=== PATIENT | male | born 1950 | race Caucasian/White ===

== ENCOUNTER 2019-07-09 13:32 | Emergency (ER) | payer OTHER, SELFPAY ==
[2019-07-09 13:40] VITALS: BP 161/75; PULSE 63; RESP 16; TEMP 36.2; O2SAT 99; BMI 25.1
[2019-07-09 14:24] LABS: Add Manual Diff / Slide Review NO; Basophils Absolute Auto 0 /uL (0-100); Basophils Percent Auto 0.2 % (0-2); Eosinophils Absolute Auto 0 /uL (0-450); Eosinophils Percent Auto 0.2 % (2-4); Hemoglobin 14.7 g/dL (13.5-17.5); Lymphocytes Absolute Auto 600 /uL (1100-4500); Lymphocytes Percent Auto 4.7 % (25-40); Mean Corpuscular HGB Conc 34.2 % (30-36); Mean Corpuscular Hemoglobin 31.8 PG (26-34); Mean Corpuscular Volume 93.2 fL (80-100); Monocytes Absolute Auto 800 /uL (0-900); Neutrophils Absolute Auto 11500 /uL (1500-7000); Neutrophils Percent Auto 88.9 % (50-75); Platelet Count 208 X10^3/uL (150-400); Red Blood Cell Count 4.61 X10^6/uL (4.5-5.9); Red Cell Distribution Width 13.1 % (11.6-14.8); White Blood Cell Count 12.9 X10^3/uL (4.5-11.0)
[2019-07-09] MEDS: KETOROLAC 60 MG/2 ML VIAL 30 MG IV (14:24)
[2019-07-09] MEDS: ONDANSETRON 4 MG/2 ML INJ IV (14:24)
[2019-07-09] MEDS: SODIUM CHLORIDE 0.9% 1,000 ML 1000 ML IV (14:25)
[2019-07-09 14:28] LABS: Prothrombin Time 10.9 SECONDS (10.1-12.7)
[2019-07-09 14:30] LABS: PTT Partial Thromboplastin Tim 28 SECONDS (26.4-36.2)
[2019-07-09 14:31] LABS: HEMOLYSIS < 15 (0-50); Sodium 139 mmol/L (137-145)
--- NOTE | 2019-07-09 14:32 | PC.NURSE ---
c/o left flank pain w/ h/o kidney stones. + nausea / vomiting. Denies fever / chills.
[2019-07-09 14:33] LABS: Alanine Aminotransferase 32 IU/L (21-72); Albumin 4.6 g/dL (3.5-5.0); Albumin Globulin Ratio 1.8 (1.0-2.8); Alkaline Phosphatase 74 U/L (38-126); Aspartate Aminotransferase 36 IU/L (17-59); Bilirubin Total 0.8 mg/dL (0.2-1.3); Blood Urea Nitrogen 18 mg/dL (9-20); Calcium 9.6 mg/dL (8.4-10.2); Carbon Dioxide 28 mmol/L (22-32); Chloride 100 mmol/L (98-107); Estimated Glomerular Filt Rate > 60.0 mL/min (>60); Globulin 2.6 g/dL (1.7-4.1); Glucose 122 mg/dL (80-110); Lipase 52 U/L (23-300); Potassium 4.1 mmol/L (3.4-5.1); Total Protein 7.2 g/dL (6.3-8.2)
--- NOTE | 2019-07-09 14:37 | ED.MALEGU ---
HPI - Male Genitourinary <DOMINIK Frank - Last Filed: 07/09/19 20:26> General Chief complaint: Urogenital-Male Stated complaint: possible kidney stone been sick last couple of day Time Seen by Provider: 07/09/19 14:21 Source: patient Mode of arrival: ambulatory Limitations: no limitations History of Present Illness HPI Narrative: 69-year-old male with a history of HTN, HLD, and a kidney stone a long time ago, presents emergency department complaining of left flank pain this morning with vomiting and nausea. Patient states after dinner 5 days ago he felt like his stomach was a little ?upset, he proceeded to take Ex-Lax and had some diarrhea. However, the left flank pain and vomiting developed today and he was afraid that he might have another kidney stone. He states his last kidney stone was over 10 years ago. He denies any dysuria, hematuria, fevers, chills, chest pain, shortness of breath, abdominal pain at this time, or syncope. Related Data Previous Rx's Medication Instructions Recorded ketorolac 10 mg PO TID #7 tab 07/09/19 ondansetron 8 mg PO Q8H #14 tab 07/09/19 oxycodone-acetaminophen [Percocet] 1 tab PO Q4-6H PRN #14 tab 07/09/19 tamsulosin 0.4 mg PO DAILY #20 cap 07/09/19 Allergies Allergy/AdvReac Type Severity Reaction Status Date / Time No Known Drug Allergies Allergy Verified 07/09/19 13:40 Review of Systems <DOMINIK Frank - Last Filed: 07/09/19 20:26> Review of Systems Narrative: PHYSICAL EXAMINATION: GENERAL: Well groomed, alert, and cooperative. Answers questions promptly and appropriately. Vital signs noted. HENT: Normocephalic, atraumatic. Hearing intact. Oral mucosa is pink and moist. EYES: Conjunctiva pink, sclera white, no periorbital swelling. CARDIOVASCULAR: S1 and S2 sounds normal. Regular rate and rhythm, no murmurs, clicks, or bruits. No pedal edema. RESPIRATORY: Normal respiratory rate, trachea midline, airway patent. No stridor, nasal flaring or accessory muscle use. Lungs are clear in all kim without wheeze, rhonchi, or crackles. GASTROINTESTINAL: Bowel sounds normoactive. Abdomen is soft and non-tender. No organomegaly, no palpable masses. GENITALURINARY: Left flank tenderness noted. MUSCULOSKELETAL: Normal gait and coordination. Equal tone and mass bilaterally. EXTREMITIES: CMS intact, no pedal edema. SKIN: Warm, dry, soft, appropriate color for ethnicity. No lesions, rashes, or wounds. NEURO: Alert and Oriented X 3. Good coordination. No ataxia, or sensory deficits, or cognitive issues. PSYCH: Appropriate affect and mood. PFSH <DOMINIK Frank - Last Filed: 07/09/19 20:26> Medical History No significant past surgical history (Acute) Social History Smoking Status: Never smoker Social History Smoking Status: Never smoker Exam <DOMINIK Frank - Last Filed: 07/09/19 20:26> Initial Vital Signs Initial Vital Signs: Vital Signs Temperature 97.2 F L 07/09/19 13:40 Pulse Rate 63 07/09/19 13:40 Respiratory Rate 16 07/09/19 13:40 Blood Pressure 161/75 H 07/09/19 13:40 Pulse Oximetry 99 07/09/19 13:40 PHYSICAL EXAMINATION: GENERAL: Well groomed, alert, and cooperative. Patient appears in pain during exam. Answers questions promptly and appropriately. Vital signs noted. HENT: Normocephalic, atraumatic. Hearing intact. Oral mucosa is pink and moist. EYES: Conjunctiva pink, sclera white, no periorbital swelling. CARDIOVASCULAR: S1 and S2 sounds normal. Regular rate and rhythm, no murmurs, clicks, or bruits. No pedal edema. RESPIRATORY: Normal respiratory rate, trachea midline, airway patent. No stridor, nasal flaring or accessory muscle use. Lungs are clear in all kim without wheeze, rhonchi, or crackles. GASTROINTESTINAL: Bowel sounds normoactive. Abdomen is soft and non-tender. No organomegaly, no palpable masses. GENITALURINARY: No flank tenderness. MUSCULOSKELETAL: Normal gait and coordination. Equal tone and mass bilaterally. EXTREMITIES: CMS intact, no pedal edema. SKIN: Warm, dry, soft, appropriate color for ethnicity. No lesions, rashes, or wounds. NEURO: Alert and Oriented X 3. Good coordination. No ataxia, or sensory deficits, or cognitive issues. PSYCH: Appropriate affect and mood. <Divina Rogers DO - Last Filed: 07/10/19 19:15> Initial Vital Signs Initial Vital Signs: Vital Signs Temperature 97.2 F L 07/09/19 13:40 Pulse Rate 63 07/09/19 13:40 Respiratory Rate 16 07/09/19 13:40 Blood Pressure 161/75 H 07/09/19 13:40 Pulse Oximetry 99 07/09/19 13:40 Course <Iraida VelasquezDOMINIK landa - Last Filed: 07/09/19 20:26> Course Course Narrative: Patient reports decreased pain after administration of Toradol and Zofran. I had extensive conversation with the patient about his test results. He stated his symptoms from [place] and would like to establish the urologist in [place]. I stressed the importance of following up with the urologist as soon as possible as his stone is very big. I also stressed the importance that he was written to return to the emergency department if his pain or symptoms worsen in any way. Orders Ordered: Discontinued Medications Sodium Chloride (Normal Saline 0.9%) 1,000 mls @ 1,000 mls/hr IV BOLUS ONE Stop: 07/09/19 15:20 Last Infusion: 07/09/19 16:52 Dose: 0 mls/hr Documented by: JUAN LUIS Admin: 07/09/19 14:25 Dose: 1,000 mls/hr Documented by: RUBY Ketorolac Tromethamine (Toradol) 30 mg IV NOW ONE Stop: 07/09/19 14:22 Last Admin: 07/09/19 14:24 Dose: 30 mg Documented by: RUBY Ondansetron HCl (Zofran) 4 mg IV NOW ONE Stop: 07/09/19 14:22 Last Admin: 07/09/19 14:24 Dose: 4 mg Documented by: RUBY Consultations Consultation #1: Patient was staffed with Dr. Rogers. Vital Signs Vital signs: Vital Signs - 8 hr 07/09/19 13:40 07/09/19 15:24 07/09/19 16:26 Temperature 97.2 F L Pulse Rate 63 68 70 Respiratory Rate 16 18 18 Blood Pressure 161/75 H Blood Pressure [Left Arm] 138/74 136/70 Pulse Oximetry 99 98 98 <Divina Rogers DO - Last Filed: 07/10/19 19:15> Orders Ordered: Discontinued Medications Sodium Chloride (Normal Saline 0.9%) 1,000 mls @ 1,000 mls/hr IV BOLUS ONE Stop: 07/09/19 15:20 Last Infusion: 07/09/19 16:52 Dose: 0 mls/hr Documented by: JUAN LUIS Admin: 07/09/19 14:25 Dose: 1,000 mls/hr Documented by: RUBY Ketorolac Tromethamine (Toradol) 30 mg IV NOW ONE Stop: 07/09/19 14:22 Last Admin: 07/09/19 14:24 Dose: 30 mg Documented by: RUBY Ondansetron HCl (Zofran) 4 mg IV NOW ONE Stop: 07/09/19 14:22 Last Admin: 07/09/19 14:24 Dose: 4 mg Documented by: RUBY Vital Signs Vital signs: Vital Signs - 8 hr 07/09/19 13:40 07/09/19 15:24 07/09/19 16:26 Temperature 97.2 F L Pulse Rate 63 68 70 Respiratory Rate 16 18 18 Blood Pressure 161/75 H Blood Pressure [Left Arm] 138/74 136/70 Pulse Oximetry 99 98 98 MDM - Male Genitourinary <DOMINIK Frank - Last Filed: 07/09/19 20:26> Medical Records Attestation: I reviewed the patient's medical records. Lab Data Attestation: I reviewed the patient's lab results. Result diagrams: 07/09/19 14:10 07/09/19 14:10 Labs: Lab Results 07/09/19 07/09/19 07/09/19 Range/Units 14:10 14:10 14:10 WBC 12.9 H (4.5-11.0) X10^3/uL RBC 4.61 (4.5-5.9) X10^6/uL Hgb 14.7 (13.5-17.5) g/dL Hct 43.0 (41-53) % MCV 93.2 (80-100) fL MCH 31.8 (26-34) PG MCHC 34.2 (30-36) % RDW 13.1 (11.6-14.8) % Plt Count 208 (150-400) X10^3/uL Neut % (Auto) 88.9 H (50-75) % Lymph % (Auto) 4.7 L (25-40) % [place] % (Auto) 6.0 (3-14) % Eos % (Auto) 0.2 L (2-4) % Baso % (Auto) 0.2 (0-2) % Neut # (Auto) 59556 H (4172-0570) /uL Lymph # (Auto) 600 L (9714-9671) /uL [place] # (Auto) 800 (0-900) /uL Eos # (Auto) 0 (0-450) /uL Baso # (Auto) 0 (0-100) /uL PT 10.9 (10.1-12.7) SECONDS INR 1.0 (0.9-1.3) APTT 28 (26.4-36.2) SECONDS Sodium 139 (137-145) mmol/L Potassium 4.1 (3.4-5.1) mmol/L Chloride 100 (98-107) mmol/L Carbon Dioxide 28 (22-32) mmol/L BUN 18 (9-20) mg/dL Creatinine 1.00 (0.66-1.25) mg/dL Estimated GFR > 60.0 (>60) mL/min BUN/Creatinine Ratio 18.0 (6-22) Glucose 122 H (80-110) mg/dL Calcium 9.6 (8.4-10.2) mg/dL Total Bilirubin 0.8 (0.2-1.3) mg/dL AST 36 (17-59) IU/L ALT 32 (21-72) IU/L Alkaline Phosphatase 74 (38-126) U/L Total Protein 7.2 (6.3-8.2) g/dL Albumin 4.6 (3.5-5.0) g/dL Globulin 2.6 (1.7-4.1) g/dL Albumin/Globulin Ratio 1.8 (1.0-2.8) Lipase 52 (23-300) U/L Urine RBC (0-5/HPF) Urine WBC (0-5/HPF) Ur Squamous Epith Cells (0-5/HPF) Amorphous Sediment Urine Bacteria (None) Ur Culture Indicated? 07/09/19 Range/Units 16:18 WBC (4.5-11.0) X10^3/uL RBC (4.5-5.9) X10^6/uL Hgb (13.5-17.5) g/dL Hct (41-53) % MCV (80-100) fL MCH (26-34) PG MCHC (30-36) % RDW (11.6-14.8) % Plt Count (150-400) X10^3/uL Neut % (Auto) (50-75) % Lymph % (Auto) (25-40) % [place] % (Auto) (3-14) % Eos % (Auto) (2-4) % Baso % (Auto) (0-2) % Neut # (Auto) (8324-6264) /uL Lymph # (Auto) (0977-6611) /uL [place] # (Auto) (0-900) /uL Eos # (Auto) (0-450) /uL Baso # (Auto) (0-100) /uL PT (10.1-12.7) SECONDS INR (0.9-1.3) APTT (26.4-36.2) SECONDS Sodium (137-145) mmol/L Potassium (3.4-5.1) mmol/L Chloride (98-107) mmol/L Carbon Dioxide (22-32) mmol/L BUN (9-20) mg/dL Creatinine (0.66-1.25) mg/dL Estimated GFR (>60) mL/min BUN/Creatinine Ratio (6-22) Glucose (80-110) mg/dL Calcium (8.4-10.2) mg/dL Total Bilirubin (0.2-1.3) mg/dL AST (17-59) IU/L ALT (21-72) IU/L Alkaline Phosphatase (38-126) U/L Total Protein (6.3-8.2) g/dL Albumin (3.5-5.0) g/dL Globulin (1.7-4.1) g/dL Albumin/Globulin Ratio (1.0-2.8) Lipase (23-300) U/L Urine RBC 10-30/hpf H (0-5/HPF) Urine WBC 0-1/hpf (0-5/HPF) Ur Squamous Epith Cells None seen (0-5/HPF) Amorphous Sediment 1+ Urine Bacteria Occasional (0-1) (None) Ur Culture Indicated? Cult not indicated Urine Dip Bedside Urine Glucose Negative Bedside Urine Bilirubin - Negative Bedside Urine Ketone ++ 40 Urine Specific [place]uff[place] 1.015 Bedside Urine Occult Blood ++ Bedside Urine pH 8.0 Bedside Urine Protein - Negative Bedside Urine Urobilinogen - Negative Bedside Urine Nitrite - Negative Imaging Data CT scan - abdomen: Radiologist's impression: [address] [address] [address] Scan Report Signed Patient: Gus Renner#: [id number] : 1950Acct:[id number] Age/Sex: 69 / MDate of Service: 07/09/19 Loc: ED Accession Number: [id number] Procedure: CT kidney ureter bladder (KUB) Ordering Provider: Iraida Romo PROCEDURE: CT KIDNEY URETER BLADDER (KUB) INDICATIONS: Left Flank pain, n/v, TECHNIQUE: Noncontrast 5 mm thick sections acquired from the diaphragms to the symphysis. 5 mm thick coronal and sagittal reformats were then performed. For radiation dose reduction, the following was used: automated exposure control, adjustment of mA and/or kV according to patient size. COMPARISON: None. FINDINGS: Image quality: Diagnostic. Lung bases: Lung bases are clear. Heart size is normal. Urinary system: There is a 5 x 5 x 7 mm calculus identified within the mid left ureter (image 49, series 2) with corresponding moderate left-sided proximal hydroureter and hydronephrosis. A prominent perinephric edema is evident. No additional ureteral calculi are present bilaterally. There are small to moderate-sized additional bilateral renal calculi. No hydronephrosis of the right kidney is present. The urinary bladder is unremarkable without bladder wall thickening or a bladder calculus. The prostate is mildly enlarged and contains a coarse calcification. Other solid organs: There is a subcentimeter low attenuation lesion identified along the inferior margin of the right hepatic lobe. Otherwise, the liver is grossly unremarkable. The gallbladder is not inflamed or enlarged. The spleen, adrenals, and pancreas appear to be within normal limits, but are not well evaluated without contrast. Peritoneum and bowel: Imaged bowel loops are nondilated. Moderate residual stool is seen within the colon. The appendix is normal in size. No free fluid, loculated fluid collection or free air is appreciated. Nodes and vessels: No retroperitoneal or mesenteric adenopathy by size criteria. Aorta and inferior vena cava are normal in caliber. Other pelvic soft tissues: No free pelvic fluid. A fat containing right inguinal hernia is present. No significant left inguinal hernia or pelvic adenopathy is appreciated. Bones: No suspicious bony lesions. Moderate multilevel degenerative changes of the imaged thoracolumbar spine are present. There also are mild to moderate degenerative changes of the pelvic joints. IMPRESSION: 1. Moderate-sized (7 mm) at least partially obstructing mid left ureteral calculus with corresponding moderate left-sided hydronephrosis. 2. Additional nonobstructing bilateral renal calculi. 3. No bowel obstruction. 4. Small fat-containing right inguinal hernia. 5. Mild to moderate degenerative changes of the imaged spine and pelvic joints. Dictated by: Akil Milner M.D. on 07/09/2019 at 14:12 Approved by: Akil Milner M.D. on 07/09/2019 at 14:23 MDM Narrative Medical decision making narrative: Patient's exam and symptoms correlate with the CT findings of a renal stone. He is a candidate for outpatient treatment as this stone is only partially obstructive, his renal function is not impaired, and his vomiting and pain are controlled. I do not suspect that he has a urinary tract infection as his urine was negative for white blood cells or nitrates. Although, patient was instructed to return immediately if any symptoms worsen due to his hydronephrosis and slightly elevated white blood cell count. Patient was able to call his primary care provider while in the emergency department to request referral to a neurologist closer to him. He was given medications to control his symptoms. I do not suspect any other abdominal etiology due to non remarkable labs such as lipase and lack of abdominal pain. Strict return precautions given and follow-up instructions discussed. <Divina Rogers, DO - Last Filed: 07/10/19 19:15> Lab Data Labs: Lab Results 07/09/19 07/09/19 07/09/19 Range/Units 14:10 14:10 14:10 WBC 12.9 H (4.5-11.0) X10^3/uL RBC 4.61 (4.5-5.9) X10^6/uL Hgb 14.7 (13.5-17.5) g/dL Hct 43.0 (41-53) % MCV 93.2 (80-100) fL MCH 31.8 (26-34) PG MCHC 34.2 (30-36) % RDW 13.1 (11.6-14.8) % Plt Count 208 (150-400) X10^3/uL Neut % (Auto) 88.9 H (50-75) % Lymph % (Auto) 4.7 L (25-40) % [place] % (Auto) 6.0 (3-14) % Eos % (Auto) 0.2 L (2-4) % Baso % (Auto) 0.2 (0-2) % Neut # (Auto) 16643 H (4513-0205) /uL Lymph # (Auto) 600 L (8416-1360) /uL [place] # (Auto) 800 (0-900) /uL Eos # (Auto) 0 (0-450) /uL Baso # (Auto) 0 (0-100) /uL PT 10.9 (10.1-12.7) SECONDS INR 1.0 (0.9-1.3) APTT 28 (26.4-36.2) SECONDS Sodium 139 (137-145) mmol/L Potassium 4.1 (3.4-5.1) mmol/L Chloride 100 (98-107) mmol/L Carbon Dioxide 28 (22-32) mmol/L BUN 18 (9-20) mg/dL Creatinine 1.00 (0.66-1.25) mg/dL Estimated GFR > 60.0 (>60) mL/min BUN/Creatinine Ratio 18.0 (6-22) Glucose 122 H (80-110) mg/dL Calcium 9.6 (8.4-10.2) mg/dL Total Bilirubin 0.8 (0.2-1.3) mg/dL AST 36 (17-59) IU/L ALT 32 (21-72) IU/L Alkaline Phosphatase 74 (38-126) U/L Total Protein 7.2 (6.3-8.2) g/dL Albumin 4.6 (3.5-5.0) g/dL Globulin 2.6 (1.7-4.1) g/dL Albumin/Globulin Ratio 1.8 (1.0-2.8) Lipase 52 (23-300) U/L Urine RBC (0-5/HPF) Urine WBC (0-5/HPF) Ur Squamous Epith Cells (0-5/HPF) Amorphous Sediment Urine Bacteria (None) Ur Culture Indicated? 07/09/19 Range/Units 16:18 WBC (4.5-11.0) X10^3/uL RBC (4.5-5.9) X10^6/uL Hgb (13.5-17.5) g/dL Hct (41-53) % MCV (80-100) fL MCH (26-34) PG MCHC (30-36) % RDW (11.6-14.8) % Plt Count (150-400) X10^3/uL Neut % (Auto) (50-75) % Lymph % (Auto) (25-40) % [place] % (Auto) (3-14) % Eos % (Auto) (2-4) % Baso % (Auto) (0-2) % Neut # (Auto) (5596-2581) /uL Lymph # (Auto) (9718-2255) /uL [place] # (Auto) (0-900) /uL Eos # (Auto) (0-450) /uL Baso # (Auto) (0-100) /uL PT (10.1-12.7) SECONDS INR (0.9-1.3) APTT (26.4-36.2) SECONDS Sodium (137-145) mmol/L Potassium (3.4-5.1) mmol/L Chloride (98-107) mmol/L Carbon Dioxide (22-32) mmol/L BUN (9-20) mg/dL Creatinine (0.66-1.25) mg/dL Estimated GFR (>60) mL/min BUN/Creatinine Ratio (6-22) Glucose (80-110) mg/dL Calcium (8.4-10.2) mg/dL Total Bilirubin (0.2-1.3) mg/dL AST (17-59) IU/L ALT (21-72) IU/L Alkaline Phosphatase (38-126) U/L Total Protein (6.3-8.2) g/dL Albumin (3.5-5.0) g/dL Globulin (1.7-4.1) g/dL Albumin/Globulin Ratio (1.0-2.8) Lipase (23-300) U/L Urine RBC 10-30/hpf H (0-5/HPF) Urine WBC 0-1/hpf (0-5/HPF) Ur Squamous Epith Cells None seen (0-5/HPF) Amorphous Sediment 1+ Urine Bacteria Occasional (0-1) (None) Ur Culture Indicated? Cult not indicated Urine Dip Bedside Urine Glucose Negative Bedside Urine Bilirubin - Negative Bedside Urine Ketone ++ 40 Urine Specific Ruffin 1.015 Bedside Urine Occult Blood ++ Bedside Urine pH 8.0 Bedside Urine Protein - Negative Bedside Urine Urobilinogen - Negative Bedside Urine Nitrite - Negative Discharge Plan Departure Patient Disposition: Home Clinical Impression: Renal calculi Discharge Date/Time: 07/09/19 16:53 Instructions: DI for Kidney Infection, DI for Kidney Stones Activity Restrictions/Additional Instructions: Thank you for entrusting me with your care today. As discussed, you have a 7mm kidney stone on your left side. It is possible that you will need to see a urologist to be able to pass this. Please call your primary care provider today for referral. I prescribed you medication for nausea, pain, and to help you pass a kidney stone. Do not take the ketorolac if you began to have significantly worsening left-sided pain. Return to the emergency department immediately if you have severely worsening pain, fevers or chills, chest pain, shortness of breath, or other concerning symptoms. Prescriptions: New oxycodone-acetaminophen [Percocet] 5-325 mg tablet 1 tab PO Q4-6H PRN (Reason: pain) Qty: 14 RF: 0 ondansetron 8 mg tablet,disintegrating 8 mg PO Q8H Qty: 14 RF: 0 tamsulosin 0.4 mg capsule 0.4 mg PO DAILY Qty: 20 RF: 0 ketorolac 10 mg tablet 10 mg PO TID Qty: 7 RF: 0 Referrals: Ana Dorado MD [Non-Staff] - (7mm Renal stone)
--- NOTE | 2019-07-09 14:53 | DI.CT.S_ITS ---
PROCEDURE: CT KIDNEY URETER BLADDER (KUB) INDICATIONS: Left Flank pain, n/v, TECHNIQUE: Noncontrast 5 mm thick sections acquired from the diaphragms to the symphysis. 5 mm thick coronal and sagittal reformats were then performed. For radiation dose reduction, the following was used: automated exposure control, adjustment of mA and/or kV according to patient size. COMPARISON: None. FINDINGS: Image quality: Diagnostic. Lung bases: Lung bases are clear. Heart size is normal. Urinary system: There is a 5 x 5 x 7 mm calculus identified within the mid left ureter (image 49, series 2) with corresponding moderate left-sided proximal hydroureter and hydronephrosis. A prominent perinephric edema is evident. No additional ureteral calculi are present bilaterally. There are small to moderate-sized additional bilateral renal calculi. No hydronephrosis of the right kidney is present. The urinary bladder is unremarkable without bladder wall thickening or a bladder calculus. The prostate is mildly enlarged and contains a coarse calcification. Other solid organs: There is a subcentimeter low attenuation lesion identified along the inferior margin of the right hepatic lobe. Otherwise, the liver is grossly unremarkable. The gallbladder is not inflamed or enlarged. The spleen, adrenals, and pancreas appear to be within normal limits, but are not well evaluated without contrast. Peritoneum and bowel: Imaged bowel loops are nondilated. Moderate residual stool is seen within the colon. The appendix is normal in size. No free fluid, loculated fluid collection or free air is appreciated. Nodes and vessels: No retroperitoneal or mesenteric adenopathy by size criteria. Aorta and inferior vena cava are normal in caliber. Other pelvic soft tissues: No free pelvic fluid. A fat containing right inguinal hernia is present. No significant left inguinal hernia or pelvic adenopathy is appreciated. Bones: No suspicious bony lesions. Moderate multilevel degenerative changes of the imaged thoracolumbar spine are present. There also are mild to moderate degenerative changes of the pelvic joints. IMPRESSION: 1. Moderate-sized (7 mm) at least partially obstructing mid left ureteral calculus with corresponding moderate left-sided hydronephrosis. 2. Additional nonobstructing bilateral renal calculi. 3. No bowel obstruction. 4. Small fat-containing right inguinal hernia. 5. Mild to moderate degenerative changes of the imaged spine and pelvic joints. Dictated by: Akil Milnre M.D. on 07/09/2019 at 14:12 Approved by: Akil Milner M.D. on 07/09/2019 at 14:23
[2019-07-09 15:24] VITALS: BP 138/74; PULSE 68; RESP 18; O2SAT 98
[2019-07-09 16:26] VITALS: BP 136/70; PULSE 70; RESP 18; O2SAT 98
[2019-07-09 16:39] LABS: Amorphous Sediment Urine 1+; Bacteria Urine Occasional (0-1); Culture Indicated Urine Cult Not Indicated; RBC Urine 10-30/HPF (0-5/HPF); Squamous Epithelial Cell Urine None Seen (0-5/HPF); WBC Urine 0-1/HPF (0-5/HPF)
== END 2019-07-09 16:53 | disposition home or self-care (01) ==
PROVIDERS: Emergency Medicine; Emergency Provider Nurse Practitioner
DX: N20.0 Calculus of kidney (principal)
CPT/HCPCS: 36591; 74176; 80053; 81003; 81015; 83690; 85025; 85610; 85730; 93005; 96361; 96374; 96375; 99283; 99284; J1885; J2405